=== PATIENT | female | born 1985 | race Caucasian/White ===

== ENCOUNTER 2016-09-05 | Observation (INO) | payer OTHER ==
[~2016-09-05] MED LIST: IBUPROFEN800 MG PO; MOTRIN800 MG PO; OXYCODONE/APAP PO; PERCOCET 5MG/AP1 TA1; PRENATAL VITAMI1 TAB PO; PRENATAL1 EACH; PREVACID; PREVACID30 MG PO; TYLENOL #31 TA1 PO; TYLENOL325 M1 PO; ZOLOFT50 MG PO
[2016-09-05] MEDS ORDERED: PREVACID15 M2 (22:38)
[2016-12-10] MEDS ORDERED: IBUPROFEN800 M1 PO (08:25)
== END 2016-09-06 15:28 ==
DX: O99.89 Other specified diseases and conditions complicating pregnancy, childbirth and the puerperium (principal); N13.30 Unspecified hydronephrosis; Z3A.27 27 weeks gestation of pregnancy; Z88.2 Allergy status to sulfonamides